=== PATIENT | male | born 1985 | race African-American/Black ===

== ENCOUNTER 2024-11-18 17:19 | Emergency (ER) | payer OTHER ==
[~2024-11-18] VITALS: Ht 172.7 cm; Wt 84.5 kg
[2024-11-18 17:23] VITALS: TEMP 98.9
[2024-11-18 17:45] LABS: PLATELET COUNT (AUTO) 213 K/uL (150-450); RED BLOOD CELL COUNT(AUTO) 4.20 MIL/uL (4.50-5.90); RED CELL DISTRIBUTION WIDTH 14.4 % (11.5-14.5); WHITE BLOOD COUNT (AUTO) 7.9 K/uL (4.5-11.0)
[2024-11-18] MEDS ORDERED: IOHEXOL 350 MG/ML 100 ML VIAL ONE (17:59)
[2024-11-18] MEDS ORDERED: 0.9% SODIUM CHLORIDE 10 ML SYRINGE IVP ONE (17:59)
[2024-11-18] MEDS ORDERED: SODIUM CHLORIDE 0.9% 100 ML ONE (17:59)
[2024-11-18 18:03] LABS: CALCIUM, TOTAL 8.5 mg/dL (8.8-10.5); CREATININE 1.18 mg/dL (0.60-1.30); GLOMERULAR FILTR. RATE CALC > 60 mL/min (>60); GLUCOSE,RANDOM 130 mg/dL (70-110); SODIUM SERUM 138 mmol/L (136-145); UREA NITROGEN, BLOOD 16 mg/dL (7-18)
[2024-11-18 18:09] VITALS: BP 121/74; PULSE 72; RESP 16; O2SAT 99
[2024-11-18 18:09] LABS: ASPARTATE AMINOTRANSFERASE 28.0 U/L (15-37); TOTAL PROTEIN, SERUM 7.1 g/dL (6.4-8.2)
[2024-11-18] MEDS: MORPHINE SULFATE 2 MG/ML SYRINGE IVP ONE (18:13)
[2024-11-18] MEDS: ACETAMINOPHEN 500 MG TABLET PO ONE (18:13)
[2024-11-18] MEDS: SODIUM CHLORIDE 0.9% 1,000 ML IV ONE (18:13)
[2024-11-18] MEDS: POTASSIUM CHLORIDE 20 MEQ ER TABLET PO ONE (19:36)
[2024-11-18 20:26] LABS: APPEARANCE,URINE CLEAR (CLEAR); GLUCOSE, URINE (UA) 300-500 mg/dL (NEGATIVE); LEUKOCYTE ESTERASE ,URINE NEGATIVE (NEGATIVE); NITRATE,URINE NEGATIVE (NEGATIVE); OCCULT BLOOD,URINE NEGATIVE (NEGATIVE); SPECIFIC GRAVITIY, URINE 1.014 (1.003-1.030)
[2024-11-18] MEDS ORDERED: SULF-261 PO (20:35)
[2024-11-18] MEDS ORDERED: CEPH-558 PO (20:35)
[2024-11-18 20:42] LABS: SQUAMOUS EPITHELIAL CELL,UR Rare /LPF (None Seen)
[2024-11-18] MEDS: SULFAMETHOX/TRIMETH DS 800-160 MG/TABLET PO ONE (21:02)
[2024-11-18] MEDS: CefTRIAXone 1 GM/DEXTROSE 50 ML IV ONE (21:02)
== END 2024-11-18 21:53 | disposition home or self-care (01) ==
LOC: EMS 17:19
DX: N49.2 Inflammatory disorders of scrotum (principal); F17.210 Nicotine dependence, cigarettes, uncomplicated; R10.2 Pelvic and perineal pain; N50.82 Scrotal pain
CPT/HCPCS: 99285; 74177; 96365; 96375; 80048; 80076; 81001; 83690; 85025; 36415; 76870; Q9967; J0696; J2270; J7030; J7050

== ENCOUNTER 2024-11-22 16:00 | Inpatient (IN) | payer OTHER ==
[~2024-11-22] VITALS: Ht 172.7 cm; Wt 84.5 kg
[~2024-11-22 16:00] MED LIST: CEPH-558 PO; SULF-261 PO
[2024-11-22 18:06] LABS: APPEARANCE,URINE CLEAR (CLEAR); GLUCOSE, URINE (UA) TRACE mg/dL (NEGATIVE); LEUKOCYTE ESTERASE ,URINE NEGATIVE (NEGATIVE); NITRATE,URINE NEGATIVE (NEGATIVE); OCCULT BLOOD,URINE NEGATIVE (NEGATIVE); SPECIFIC GRAVITIY, URINE 1.012 (1.003-1.030)
[2024-11-22 18:06] LABS: PLATELET COUNT (AUTO) 228 K/uL (150-450); RED BLOOD CELL COUNT(AUTO) 4.35 MIL/uL (4.50-5.90); RED CELL DISTRIBUTION WIDTH 14.3 % (11.5-14.5); WHITE BLOOD COUNT (AUTO) 6.8 K/uL (4.5-11.0)
[2024-11-22] MEDS: HYDROCODONE/ACETAMINOPHEN 5-325 MG TABLET PO ONE (18:10)
[2024-11-22] MEDS: IBUPROFEN 400 MG TABLET PO ONE (18:10)
[2024-11-22 18:11] LABS: SQUAMOUS EPITHELIAL CELL,UR Rare /LPF (None Seen)
[2024-11-22 18:15] LABS: CALCIUM, TOTAL 9.0 mg/dL (8.8-10.5); CREATININE 1.11 mg/dL (0.60-1.30); GLOMERULAR FILTR. RATE CALC > 60 mL/min (>60); GLUCOSE,RANDOM 87 mg/dL (70-110); SODIUM SERUM 137 mmol/L (136-145); UREA NITROGEN, BLOOD 10 mg/dL (7-18)
[2024-11-22] MEDS: OxyCODONE HCL 5 MG IR TABLET PO ONE ×2 (20:39→23:56)
[2024-11-22] MEDS ORDERED: OXYC-490 PO (23:38)
[2024-11-22] MEDS ORDERED: IBUP-1493 PO (23:38)
[2024-11-22] MEDS: KETOROLAC TROMETHAMINE 60 MG/2 ML VIAL IM ONE (23:56)
[2024-11-23 01:46] LABS: LACTIC ACID 0.5 mmol/L (0.4-2.0)
[2024-11-23] MEDS: PIPERACILLIN/TAZO 3.375 GM/D5W 50 ML IV ONE (01:53)
[2024-11-23] MEDS: VANCOMYCIN 1GM/WATER(PEG/NADA) 200 ML IV ONE (01:54)
[2024-11-23] MEDS ORDERED: ZOLPIDEM TARTRATE 5 MG TABLET PO PRN (07:15)
[2024-11-23] MEDS ORDERED: ONDANSETRON HCL 4 MG/2 ML VIAL IVP PRN (07:15)
[2024-11-23] MEDS ORDERED: IPRATROPIUM BROMIDE 0.5 MG/2.5 ML NEB SOLUTION NEB PRN (07:15)
[2024-11-23] MEDS ORDERED: MAGNESIUM HYDROXIDE SUSPENSION 30 ML UDCUP PO PRN (07:15)
[2024-11-23] MEDS ORDERED: MORPHINE SULFATE 2 MG/ML SYRINGE IVP PRN (07:15)
[2024-11-23] MEDS ORDERED: BISACODYL 10 MG RECTAL RECTAL SUPPOSITORY PR PRN (07:15)
[2024-11-23] MEDS ORDERED: ALBUTEROL SULFATE 2.5 MG/0.5 ML NEB SOLUTION NEB PRN (07:15)
[2024-11-23] MEDS: PIPERACILLIN/TAZO 3.375 GM/D5W 50 ML IV SCH (07:15)
[2024-11-23] MEDS ORDERED: ACETAMINOPHEN 325 MG TABLET PO PRN (07:15)
[2024-11-23] MEDS ORDERED: SODIUM CHLORIDE 0.9% 500 ML IV ONE (08:40)
[2024-11-23] MEDS: HYDROCODONE/ACETAMINOPHEN 5-325 MG TABLET PO PRN (08:51)
[2024-11-23] MEDS: HEPARIN SODIUM,PORCINE 5,000 UNITS/ML VIAL SQ SCH (08:52)
[2024-11-23] MEDS: PANTOPRAZOLE SODIUM 40 MG DR TABLET PO SCH (08:52)
[2024-11-23] MEDS: VANCOMYCIN 1.5 GM/WATER(PEG) 300 ML IV ONE (08:53)
[2024-11-23 09:50] VITALS: BP 112/63; PULSE 42; RESP 18; TEMP 97.7; O2SAT 100
[2024-11-23 15:38] VITALS: BP 113/72; PULSE 58; RESP 18; TEMP 98.6; O2SAT 100
[2024-11-23 19:26] VITALS: BP 112/65; PULSE 59; RESP 18; TEMP 97.9; O2SAT 99
[2024-11-23] MEDS: VANCOMYCIN 1.25 GM/WATER(PEG) 250 ML IV SCH (20:33)
[2024-11-24 04:42] VITALS: BP 110/60; PULSE 58; RESP 18; TEMP 97.8; O2SAT 98
[2024-11-24 07:35] LABS: CALCIUM, TOTAL 8.6 mg/dL (8.8-10.5); CREATININE 1.07 mg/dL (0.60-1.30); GLOMERULAR FILTR. RATE CALC > 60 mL/min (>60); GLUCOSE,RANDOM 85 mg/dL (70-110); SODIUM SERUM 139 mmol/L (136-145); UREA NITROGEN, BLOOD 10 mg/dL (7-18)
[2024-11-24 08:55] VITALS: BP 112/67; PULSE 60; RESP 18; TEMP 97.7; O2SAT 100
[2024-11-24 15:29] VITALS: BP 108/79; PULSE 55; RESP 18; TEMP 97.9; O2SAT 100
[2024-11-24 19:19] VITALS: BP 127/81; PULSE 73; RESP 18; TEMP 98.1; O2SAT 96
[2024-11-25 05:14] VITALS: BP 105/52; PULSE 60; RESP 18; TEMP 97.5; O2SAT 98
[2024-11-25 06:40] LABS: CALCIUM, TOTAL 8.1 mg/dL (8.8-10.5); CREATININE 0.95 mg/dL (0.60-1.30); GLOMERULAR FILTR. RATE CALC > 60 mL/min (>60); GLUCOSE,RANDOM 85 mg/dL (70-110); SODIUM SERUM 141 mmol/L (136-145); UREA NITROGEN, BLOOD 8 mg/dL (7-18)
[2024-11-25] MEDS: MORPHINE SULFATE 4 MG/ML VIAL IVP PRN (07:53)
[2024-11-25 08:18] VITALS: BP 104/72; PULSE 75; RESP 19; TEMP 97.5; O2SAT 99
[2024-11-25] MEDS ORDERED: DOXY-354 PO (09:19)
== END 2024-11-25 17:40 | disposition home or self-care (01) | DRG 728 ==
LOC: EMS 16:00 → EDH 11-23 05:54 → 6S 11-23 07:50
PROVIDERS: ADMIT Hospitalist; ATTEND Hospitalist
DX: N49.2 Inflammatory disorders of scrotum (principal); D64.9 Anemia, unspecified; Z82.5 Family history of asthma and other chronic lower respiratory diseases; Z87.891 Personal history of nicotine dependence
CPT/HCPCS: 76870; 80048; 80202; 81001; 83605; 85025; 87040; 99285; J1644; J1885; J2270; J2543; J7040